=== PATIENT | female | born 1955 | race Caucasian/White ===

== ENCOUNTER 2019-09-08 10:00 | Emergency (ER) | payer OTHER ==
--- NOTE | 2019-09-08 10:19 | ER Document Report ---
ED Medical Screen (RME) - General Chief Complaint: Cold Symptoms Stated Complaint: COLD SYMPTOMS Time Seen by Provider: 09/08/19 10:15 Primary Care Provider: JHON PARKER MD [Primary Care Provider] - Follow up as needed Mode of Arrival: Ambulatory Information source: Patient Notes: 63-year-old female presents to ED for complaint of chest tightness heaviness short of breath sinus congestion runny nose and pressure to the right ear. She denies any fevers. She does work on the [employer] and does not know if she is come in contact with anybody who has the virus. He does not have a fever. She states she does not have any cardiac history. She does take blood pressure and cholesterol medications. She also has diabetes and thyroid problems. I have greeted and performed a rapid initial assessment of this patient. A comprehensive ED assessment and evaluation of the patient, analysis of test results and completion of medical decision making process will be conducted by an additional ED providers. - Related Data Allergies/Adverse Reactions: codeine [Codeine] Allergy (Unknown, Verified 09/08/19 10:09) Past Medical History - Past Medical History Cardiac Medical History: Reports: Hx Hypertension Denies: Hx Atrial Fibrillation, Hx Congestive Heart Failure, Hx Coronary Artery Disease, Hx Heart Attack, Hx Hypercholesterolemia, Hx Peripheral Vascular Disease, Hx Pulmonary Embolism, Hx Heart Murmur Pulmonary Medical History: Reports: Hx Bronchitis - 2010, Hx Pneumonia, Hx Sleep Apnea - Does not wear cpap Denies: Hx Asthma, Hx COPD, Hx Respiratory Failure, Hx Tuberculosis Endocrine Medical History: Reports: Hx Hypothyroidism. Denies: Hx Graves' Disease, Hx Hyperthyroidism Malignancy Medical History: Denies: Hx Lung Cancer Musculoskeltal Medical History: Denies Hx Arthritis, Denies Hx Fibromyalgia, Denies Hx Muscular Dystrophy, Denies Hx Systemic Lupus Erythematosus Traumatic Medical History: Reports: Hx Fractures Past Surgical History: Reports: Hx Appendectomy, Hx Section - x3, Hx Cholecystectomy, Hx Hysterectomy. Denies: Hx Bowel Surgery, Hx Coronary Artery Bypass Graft, Hx Gastric Bypass Surgery, Hx Herniorrhaphy, Hx Mastectomy, Hx Pacemaker, Hx Tonsillectomy, Hx Tubal Ligation - Immunizations Hx Diphtheria, Pertussis, Tetanus Vaccination: Yes Physical Exam - Vital signs Vitals: Temp Pulse Resp BP Pulse Ox 98.2 F 71 18 172/76 H 98 09/08/19 10:04 09/08/19 10:04 09/08/19 10:04 09/08/19 10:04 09/08/19 10:04 Course - Vital Signs Vital signs: Temp Pulse Resp BP Pulse Ox 98.2 F 71 18 172/76 H 98 09/08/19 10:04 09/08/19 10:04 09/08/19 10:04 09/08/19 10:04 09/08/19 10:04 Doctor's Discharge - Discharge Referrals: JHON PARKER MD [Primary Care Provider] - Follow up as needed
--- NOTE | 2019-09-08 10:43 | RADIOLOGY REPORT (SQ) ---
EXAM DESCRIPTION: CHEST 2 VIEWS COMPLETED DATE/TIME: 09/08/2019 10:33 am REASON FOR STUDY: Shortness of breath chest heaviness COMPARISON: None. EXAM PARAMETERS: NUMBER OF VIEWS: two views TECHNIQUE: Digital Frontal and Lateral radiographic views of the chest acquired. RADIATION DOSE: NA LIMITATIONS: none FINDINGS: LUNGS AND PLEURA: Stable lingular opacity and obscuration of the cardiac apex, possibly prominent pericardial fat pad. No new airspace disease, pleural effusion or pneumothorax. MEDIASTINUM AND HILAR STRUCTURES: No masses or contour abnormalities. HEART AND VASCULAR STRUCTURES: Heart normal size. No evidence for failure. BONES: No acute findings. HARDWARE: None in the chest. OTHER: No other significant finding. IMPRESSION: No definite acute cardiopulmonary process. Stable lingular opacity and obscuration of the heart border, possibly secondary to outlet pericardial fat pad. TECHNICAL DOCUMENTATION: JOB ID: [id number] 2010 [employer]- All Rights Reserved Reading location - IP/workstation name: [email or web address]
[2019-09-08 10:58] LABS: ABSOLUTE EOSINOPHILS # (AUTO) 0.5 10^3/uL (0.0-0.6); ABSOLUTE LYMPHOCYTES (AUTO) 1.6 10^3/uL (0.5-4.7); ABSOLUTE MONOCYTES (AUTO) 0.5 10^3/uL (0.1-1.4); ABSOLUTE NEUT (AUTO) 5.4 10^3/uL (1.7-8.2); BASOPHILS % (AUTO) 0.5 % (0-2); EOSINOPHILS % (AUTO) 5.8 % (0-6); HEMOGLOBIN 13.8 g/dL (12.0-15.5); LYMPHOCYTES % (AUTO) 19.5 % (13-45); MEAN CORPUSCULAR HEMOGLOBIN 26.7 pg (27.0-33.4); MEAN CORPUSCULAR HGB CONC 33.7 g/dL (32.0-36.0); MEAN CORPUSCULAR VOLUME 79 fl (80-97); MONOCYTES % (AUTO) 5.9 % (3-13); PLATELET COUNT 290 10^3/uL (150-450); RED BLOOD COUNT 5.17 10^6/uL (3.72-5.28); SEGMENTED NEUTROPHILS % (AUTO) 68.3 % (42-78); TOTAL CELLS COUNTED % (AUTO) 100 %
--- NOTE | 2019-09-08 11:20 | EKG REPORT ---
SEVERITY:- ABNORMAL ECG - SINUS RHYTHM INCOMPLETE RBBB AND LAFB : Confirmed by: Fabby Lala MD 08-Sep-2019 11:19:24
[2019-09-08 11:28] LABS: NT PRO BNP 83 pg/mL (<125)
[2019-09-08 11:29] LABS: TROPONIN I < 0.012 ng/mL
[2019-09-08 12:06] LABS: ALBUMIN 4.3 g/dL (3.5-5.0); ALKALINE PHOSPHATASE 77 U/L (38-126); ANION GAP 9 (5-19); ASPARTATE AMINO TRANSFERASE 23 U/L (14-36); BILIRUBIN,DIRECT 0.1 mg/dL (0.0-0.4); BILIRUBIN,TOTAL 0.5 mg/dL (0.2-1.3); BLOOD UREA NITROGEN 20 mg/dL (7-20); CALCIUM 10.3 mg/dL (8.4-10.2); CARBON DIOXIDE 30 mmol/L (22-30); CHLORIDE 102 mmol/L (98-107); CREATINE KINASE 33 U/L (30-135); GLUCOSE 178 mg/dL (75-110); POTASSIUM 4.2 mmol/L (3.6-5.0); TOTAL PROTEIN 7.8 g/dL (6.3-8.2)
[2019-09-08 12:24] VITALS: BP 157/76
--- NOTE | 2019-09-08 14:26 | ER Document Report ---
Entered by JOE BENAVIDES SCRIBE 09/08/19 1131 Acting as scribe for:JOCELYN VERGARA MD ED General - General Chief Complaint: Cough Stated Complaint: COLD SYMPTOMS Time Seen by Provider: 09/08/19 10:15 Primary Care Provider: JHON PARKER MD [Primary Care Provider] - Follow up as needed Mode of Arrival: Ambulatory Information source: Patient Notes: This 63 year old female patient with a history of HTN, HLD, type 2 diabetes, and hypothyroidism presents to the ED today with complaints of cold symptoms that began x2 days ago. Patient reports headache, right ear ache, sore throat, and chest/back tightness with respirations. Patient states that her symptoms feel like an URI and that she has received a flu, PNA, and shingles shot this year. [place] is unaware if she came into contact with someone suspected of having COVID-19. Patient states that she took Zyrtec this morning to relieve her symptoms. - Related Data Allergies/Adverse Reactions: codeine [Codeine] Allergy (Unknown, Verified 09/08/19 10:09) Home Medications: syngardia. levothyroxine. simvastatin. amolodipine. asa Past Medical History - General Information source: Patient - Social History Smoking Status: Former Smoker - quit x7 years ago Cigarette use (# per day): No Chew tobacco use (# tins/day): No Smoking Education Provided: No Frequency of alcohol use: None Drug Abuse: None Family History: Reviewed & Not Pertinent Patient has suicidal ideation: No Patient has homicidal ideation: No - Past Medical History Cardiac Medical History: Reports: Hx Hypertension Pulmonary Medical History: Reports: Hx Bronchitis - 2010, Hx Pneumonia, Hx Sleep Apnea - Does not wear cpap Endocrine Medical History: Reports: Hx Hypothyroidism Traumatic Medical History: Reports: Hx Fractures Past Surgical History: Reports: Hx Appendectomy, Hx Section - x3, Hx Cholecystectomy, Hx Hysterectomy - Immunizations Hx Diphtheria, Pertussis, Tetanus Vaccination: Yes Hx Pneumococcal Vaccination: 07/24/09 Review of Systems - Review of Systems Constitutional: See HPI. denies: Fever EENT: See HPI, Ear pain, Nose congestion, Nose discharge, Throat pain Cardiovascular: See HPI, Chest pain - Tightness Respiratory: See HPI, Cough. denies: Sputum Gastrointestinal: No symptoms reported Genitourinary: No symptoms reported Female Genitourinary: No symptoms reported Musculoskeletal: See HPI, Back pain - Tightness Skin: No symptoms reported Hematologic/Lymphatic: No symptoms reported Neurological/Psychological: See HPI, Headaches -: Yes All other systems reviewed and negative Physical Exam - Vital signs Vitals: Temp Pulse Resp BP Pulse Ox 98.2 F 71 18 172/76 H 98 09/08/19 10:04 09/08/19 10:04 09/08/19 10:04 09/08/19 10:04 09/08/19 10:04 - General General appearance: Alert - HEENT Head: Normocephalic, Atraumatic Eyes: Normal Pupils: PERRL Tympanic membrane: Normal - Left TM, Injected - Right TM, Retracted - Right TM Nasal: Clear rhinorrhea - Minimal Pharynx: Erythema - Posterior pharygneal erythema and edema, Uvular edema - Respiratory Respiratory status: No respiratory distress Chest status: Nontender Breath sounds: Rhonchi - Scant rhonchi and congestion appreciated, otherwise CTAB Chest palpation: Normal - Cardiovascular Rhythm: Regular Heart sounds: Normal auscultation Murmur: No - Abdominal Inspection: Normal Distension: No distension Bowel sounds: Normal Tenderness: Nontender - Abdomen soft Organomegaly: No organomegaly - Back Back: Normal, Nontender - Extremities General upper extremity: Normal inspection General lower extremity: Normal inspection - Neurological Neuro grossly intact: Yes - Psychological Associated symptoms: Normal affect, Normal mood - Skin Skin Temperature: Warm Skin Moisture: Dry Skin Color: Normal Course - Vital Signs Vital signs: Temp Pulse Resp BP Pulse Ox 98.1 F 70 18 157/76 H 98 09/08/19 12:22 09/08/19 12:22 09/08/19 12:22 09/08/19 12:22 09/08/19 12:22 - Laboratory Result Diagrams: 09/08/19 10:45 09/08/19 10:45 Laboratory results interpreted by me: 09/08/19 09/08/19 10:45 10:45 MCV 79 L MCH 26.7 L RDW 15.0 H Glucose 178 H Calcium 10.3 H Discharge - Discharge Clinical Impression: Viral upper respiratory tract infection with cough Condition: Stable Disposition: HOME, SELF-CARE Additional Instructions: Upper Respiratory Illness: You have a viral infection of the respiratory passages -- a "cold." This common infection causes nasal congestion, drainage, and often sore throat and cough. It is caused by a virus and is highly contagious. The disease usually lasts a week or more, though the worst symptoms are usually over in 3 or 4 days. There is no "cure" for the viral infection -- it must run its course. If there is a complication, such as bacterial infection in the nose, sinuses, middle ear, or bronchial tubes, antibiotics may be required, but antibiotics won't affect the virus. If you smoke, you should STOP!! Drink plenty of fluids. A humidifier may help. An expectorant medication or decongestant may make you more comfortable. Use acetaminophen or ibuprofen for fever or aches. See the doctor if fever persists over two or three days, if there is any significant worsening of your symptoms, or if you simply fail to improve as expected. Take Tylenol and ibuprofen for pain or fever if needed. Drink plenty of fluids and get plenty of rest. Try taking [id number] medications such as Delsym DM or Robitussin-DM along with your Tessalon Perles to help suppress your cough. Taking antihistamines and possibly the Coricidin HBP may help open your e ustachian tube to relieve the pressure in your right ear. Follow-up with your primary care provider if not improving. RETURN TO THE EMERGENCY ROOM IF ANY NEW OR WORSENING SYMPTOMS. Forms: Return to Work Referrals: JHON PARKER MD [Primary Care Provider] - Follow up as needed I personally performed the services described in the documentation, reviewed and edited the documentation which was dictated to the scribe in my presence, and it accurately records my words and actions.
== END 2019-09-08 12:22 | disposition home or self-care (01) ==
LOC: ER 10:00
DX: J06.9 Acute upper respiratory infection, unspecified (principal); B97.89 Other viral agents as the cause of diseases classified elsewhere; R05 Cough; R07.89 Other chest pain; R51 Headache; R09.81 Nasal congestion; H92.01 Otalgia, right ear; J02.9 Acute pharyngitis, unspecified; R09.89 Other specified symptoms and signs involving the circulatory and respiratory systems; M54.9 Dorsalgia, unspecified; J34.89 Other specified disorders of nose and nasal sinuses; E11.9 Type 2 diabetes mellitus without complications; I10 Essential (primary) hypertension; E03.9 Hypothyroidism, unspecified; E78.5 Hyperlipidemia, unspecified; Z79.899 Other long term (current) drug therapy; Z79.82 Long term (current) use of aspirin; Z87.01 Personal history of pneumonia (recurrent); Z88.6 Allergy status to analgesic agent; Z88.5 Allergy status to narcotic agent
CPT/HCPCS: 36415; 71046; 80053; 82550; 83880; 84484; 85025; 93005; 93010; 99284